=== PATIENT | female | born 1965 | race Caucasian/White ===

== ENCOUNTER → 2023-08-05 11:48 | Outpatient (REF) | payer BC, SELFPAY ==
[2023-08-05 12:52] LABS: ALT (SGPT) 62 U/L (0-35); AST (SGOT) 38 U/L (14-36); Alkaline Phosphatase 100 U/L (38-126); Blood Urea Nitrogen 12 mg/dl (7-17); Calcium 9.1 mg/dl (8.4-10.2); Carbon Dioxide 31 mmol/L (22-30); Chloride 116 mmol/L (98-107); Glucose 100 mg/dl (70-99); Sodium 136 mmol/L (135-145); Total Bilirubin 0.7 mg/dl (0.2-1.3); Total Protein 6.5 g/dl (6.3-8.2); eGFR > 60.00
== END ==
LOC: REG 11:48
PROVIDERS: ATTENDING PHYSICIAN Registered Nurse; FAMILY PHYSICIAN Family Medicine
DX: U07.1 COVID-19 (principal)
CPT/HCPCS: 36415; 80053

== ENCOUNTER → 2023-08-12 13:51 | Outpatient (REF) | payer BC, SELFPAY | LOC: WDC 13:51 | PROVIDERS: ATTENDING PHYSICIAN Internal Medicine | DX: Z12.31 Encounter for screening mammogram for malignant neoplasm of breast (principal) | CPT/HCPCS: 77063; 77067 ==

== ENCOUNTER → 2023-08-22 08:52 | Outpatient (REF) | payer BC, SELFPAY ==
[2023-08-22 09:24] LABS: ALT (SGPT) 16 U/L (0-35); AST (SGOT) 21 U/L (14-36); Albumin 3.9 g/dl (3.5-5.0); Alkaline Phosphatase 91 U/L (38-126); Blood Urea Nitrogen 15 mg/dl (7-17); Carbon Dioxide 29 mmol/L (22-30); Chloride 119 mmol/L (98-107); Glucose 95 mg/dl (70-99); Sodium 138 mmol/L (135-145); Total Bilirubin 0.6 mg/dl (0.2-1.3); Total Protein 6.5 g/dl (6.3-8.2); eGFR > 60.00
== END ==
LOC: REG 08:52
PROVIDERS: ATTENDING PHYSICIAN Family Medicine
DX: R79.89 Other specified abnormal findings of blood chemistry (principal)
CPT/HCPCS: 36415; 80053

== ENCOUNTER → 2023-09-25 12:40 | Outpatient (REF) | payer BC, SELFPAY | LOC: CLAB 12:40 | PROVIDERS: ATTENDING PHYSICIAN Otolaryngology | DX: K13.0 Diseases of lips (principal) | CPT/HCPCS: 88305 ==

== ENCOUNTER → 2023-09-27 10:44 | Outpatient (REF) | payer BC, SELFPAY | LOC: CLAB 10:44 | PROVIDERS: ATTENDING PHYSICIAN Otolaryngology | DX: R22.1 Localized swelling, mass and lump, neck (principal) | CPT/HCPCS: 87070; 87205 ==

== ENCOUNTER → 2024-01-13 11:55 | Outpatient (REF) | payer BC, SELFPAY | LOC: RAD 11:55 | PROVIDERS: ATTENDING PHYSICIAN Internal Medicine Rheumatology; FAMILY PHYSICIAN Family Medicine | DX: M17.11 Unilateral primary osteoarthritis, right knee (principal) | CPT/HCPCS: 73560; 73565 ==

== ENCOUNTER → 2024-03-09 10:01 | Outpatient (REF) | payer BC, SELFPAY ==
[2024-03-09 11:37] LABS: % Basophils 0.6 % (0-2); % Eosinophils 5.8 % (0-6); % Immature Granulocytes 0.3 % (0-0.5); % Lymphocytes 28.5 % (20.5-51.1); % Monocytes 10.2 % (1.7-9.3); % Neutrophils 54.6 % (42.2-75.2); Absolute Eosinophils 0.2 10^3/uL (0-0.7); Absolute Monocytes 0.4 10^3/uL (0.1-0.6); Hemoglobin 11.8 g/dL (12.0-16.0); Mean Corp Hgb Conc. 31.1 g/dL (33.0-37.0); Mean Corpuscular Hgb 25.9 pg (27.0-31.0); Mean Corpuscular Volume 83.3 fL (81.0-99.0); Nucleated Red Blood Cells % 0 %; Platelet Count 281 10^3/uL (130-400); Red Blood Cell Count 4.56 10^6/uL (4.20-5.40); Red Cell Dist. Width 17.1 % (11.5-14.5); White Blood Cell Count 3.6 10^3/uL (4.8-10.8)
[2024-03-09 12:04] LABS: ALT (SGPT) 20 U/L (0-35); AST (SGOT) 27 U/L (14-36); Albumin 4.1 g/dl (3.5-5.0); Alkaline Phosphatase 110 U/L (38-126); Blood Urea Nitrogen 17 mg/dl (7-17); Calcium 9.6 mg/dl (8.4-10.2); Carbon Dioxide 23 mmol/L (22-30); Chloride 111 mmol/L (98-107); Glucose 89 mg/dl (70-99); HDL Cholesterol 80 mg/dl; LDL Cholesterol, Calculated 103 mg/dl; Potassium 4.4 mmol/L (3.5-5.1); Sodium 141 mmol/L (135-145); Total Bilirubin 0.6 mg/dl (0.2-1.3); Total Cholesterol 198 mg/dl (50-199); Total Protein 6.8 g/dl (6.3-8.2); Triglyceride 78 mg/dl (10-149); Very Low Density Lipoprotein 15 mg/dl (0-30); eGFR > 60.00
[2024-03-09 12:05] LABS: Glycohemoglobin (HgbA1c) 5.7 % (4.0-5.6)
[2024-03-09 12:22] LABS: Vitamin D, 25-OH*** 42.5 ng/mL (30-80)
[2024-03-09 12:36] LABS: TSH Reflex To Free T4 1.27 uIU/ml (0.47-4.68)
[2024-03-09 12:56] LABS: Vitamin B12 310 pg/ml (239-931)
== END ==
LOC: REG 10:01
PROVIDERS: ATTENDING PHYSICIAN Internal Medicine Rheumatology; FAMILY PHYSICIAN Family Medicine; OTHER PHYSICIAN Internal Medicine Endocrinology, Diabetes & Metabolism; OTHER PHYSICIAN Psychiatry & Neurology Clinical Neurophysiology
DX: M35.9 Systemic involvement of connective tissue, unspecified (principal); M79.7 Fibromyalgia; Z51.81 Encounter for therapeutic drug level monitoring; R73.01 Impaired fasting glucose; E03.9 Hypothyroidism, unspecified; E55.9 Vitamin D deficiency, unspecified; E53.8 Deficiency of other specified B group vitamins; R53.83 Other fatigue; Z13.6 Encounter for screening for cardiovascular disorders; R73.03 Prediabetes; E06.3 Autoimmune thyroiditis; E21.0 Primary hyperparathyroidism; R25.2 Cramp and spasm
CPT/HCPCS: 36415; 80053; 80061; 82306; 82607; 83036; 84443; 85025; 86140

== ENCOUNTER → 2024-04-15 06:29 | Day surgery (SDC) | payer BC, SELFPAY | LOC: GI 06:29 | PROVIDERS: ATTENDING PHYSICIAN Internal Medicine Gastroenterology | DX: Z12.11 Encounter for screening for malignant neoplasm of colon (principal); K58.9 Irritable bowel syndrome, unspecified; K57.30 Diverticulosis of large intestine without perforation or abscess without bleeding; K64.8 Other hemorrhoids; K29.80 Duodenitis without bleeding; K44.9 Diaphragmatic hernia without obstruction or gangrene; K31.7 Polyp of stomach and duodenum; K31.89 Other diseases of stomach and duodenum; D64.9 Anemia, unspecified; R12 Heartburn; Z83.719 Family history of colon polyps, unspecified | CPT/HCPCS: 45380; 43239; 88305; 88341; 88342 ==

== ENCOUNTER → 2024-05-01 07:07 | Outpatient (REF) | payer BC, SELFPAY | LOC: RAD 07:07 | PROVIDERS: ATTENDING PHYSICIAN Internal Medicine Endocrinology, Diabetes & Metabolism; FAMILY PHYSICIAN Family Medicine | DX: E04.1 Nontoxic single thyroid nodule (principal) | CPT/HCPCS: 76536 ==

== ENCOUNTER → 2024-07-11 16:48 | Outpatient (REF) | payer BC, SELFPAY | LOC: RAD 16:48 | PROVIDERS: ATTENDING PHYSICIAN Nurse Practitioner Adult Health | DX: J20.9 Acute bronchitis, unspecified (principal); J01.90 Acute sinusitis, unspecified; I10 Essential (primary) hypertension; J45.20 Mild intermittent asthma, uncomplicated | CPT/HCPCS: 71046 ==

== ENCOUNTER → 2024-07-26 08:35 | Outpatient (REF) | payer BC, SELFPAY ==
[2024-07-26 12:03] LABS: % Basophils 0.5 % (0-2); % Eosinophils 0.5 % (0-6); % Immature Granulocytes 0.2 % (0-0.5); % Lymphocytes 36.4 % (20.5-51.1); % Monocytes 10.1 % (1.7-9.3); % Neutrophils 52.3 % (42.2-75.2); Absolute Lymphocytes 2.1 10^3/uL (1.2-3.4); Absolute Monocytes 0.6 10^3/uL (0.1-0.6); Absolute Neutrophils 2.9 10^3/uL (1.4-6.5); Hematocrit 38.8 % (37.0-47.0); Hemoglobin 11.5 g/dL (12.0-16.0); Mean Corp Hgb Conc. 29.6 g/dL (33.0-37.0); Mean Corpuscular Volume 87.6 fL (81.0-99.0); Mean Platelet Volume 11.4 fL (7.4-10.4); Nucleated Red Blood Cells % 0 %; Platelet Count 327 10^3/uL (130-400); Red Blood Cell Count 4.43 10^6/uL (4.20-5.40); Red Cell Dist. Width 16.8 % (11.5-14.5); White Blood Cell Count 5.6 10^3/uL (4.8-10.8)
[2024-07-26 12:13] LABS: ALT (SGPT) 16 U/L (0-35); AST (SGOT) 18 U/L (14-36); Albumin 3.9 g/dl (3.5-5.0); Alkaline Phosphatase 75 U/L (38-126); Blood Urea Nitrogen 18 mg/dl (7-17); Calcium 9.5 mg/dl (8.4-10.2); Carbon Dioxide 30 mmol/L (22-30); Chloride 113 mmol/L (98-107); Glucose 86 mg/dl (70-99); HDL Cholesterol 92 mg/dl; Iron 51 ug/dl (37-170); LDL Cholesterol, Calculated 99 mg/dl; Potassium 3.9 mmol/L (3.5-5.1); Sodium 138 mmol/L (135-145); Total Bilirubin 0.6 mg/dl (0.2-1.3); Total Cholesterol 208 mg/dl (50-199); Total Protein 6.6 g/dl (6.3-8.2); Triglyceride 88 mg/dl (10-149); Very Low Density Lipoprotein 17 mg/dl (0-30); eGFR > 60.00
[2024-07-26 12:22] LABS: Percent Saturation 13 % (20-50); Total Iron Binding Capacity 385 ug/dl (265-497)
[2024-07-26 12:44] LABS: TSH Reflex To Free T4 6.58 uIU/ml (0.47-4.68)
[2024-07-26 12:48] LABS: Ferritin 6.2 ng/ml (11.1-264.0)
[2024-07-26 12:55] LABS: Glycohemoglobin (HgbA1c) 5.9 % (4.0-5.6)
[2024-07-26 13:10] LABS: Free T4 1.38 ng/dl (0.78-2.19)
== END ==
LOC: HWRAD 08:35
PROVIDERS: ATTENDING PHYSICIAN Otolaryngology; FAMILY PHYSICIAN Family Medicine; REFERRING PHYSICIAN Internal Medicine Rheumatology
DX: J32.8 Other chronic sinusitis (principal); D64.9 Anemia, unspecified; M35.9 Systemic involvement of connective tissue, unspecified; Z51.81 Encounter for therapeutic drug level monitoring; R73.01 Impaired fasting glucose; E03.9 Hypothyroidism, unspecified; R53.83 Other fatigue; Z13.6 Encounter for screening for cardiovascular disorders
CPT/HCPCS: 36415; 70486; 80053; 80061; 82728; 83036; 83540; 83550; 84439; 84443; 85025

== ENCOUNTER 2024-08-15 09:09 | Outpatient (RCR) | payer BC, SELFPAY ==
[2024-08-12] VITALS (8 sets, daily range): BP systolic 104–128; BP diastolic 59–77
[2024-08-12] MEDS: GAMMAGARD 200 IV (10:33)
[2024-08-12] MEDS: NSS 250 IV (10:33)
[2024-08-12] MEDS: BENADRYL 25 MG PO (10:33)
[2024-08-12] MEDS: TYLENOL 650 MG PO (10:33)
[2024-08-12] MEDS: GAMMAGARD 300 IV (12:21)
[2024-08-13] VITALS (8 sets, daily range): BP systolic 104–132; BP diastolic 58–78
[2024-08-13] MEDS: NSS 250 IV (11:17)
[2024-08-13] MEDS: GAMMAGARD 300 IV (11:18)
[2024-08-13] MEDS: BENADRYL 25 MG PO (11:18)
[2024-08-13] MEDS: TYLENOL 650 MG PO (11:18)
[2024-08-13] MEDS: GAMMAGARD 200 IV (13:23)
[2024-08-14] VITALS (8 sets, daily range): BP systolic 120–146; BP diastolic 64–87
[2024-08-14] MEDS: NSS 250 IV (09:40)
[2024-08-14] MEDS: BENADRYL 25 MG PO (09:41)
[2024-08-14] MEDS: TYLENOL 650 MG PO (09:41)
[2024-08-14] MEDS: GAMMAGARD 300 IV (09:41)
[2024-08-14] MEDS: GAMMAGARD 200 IV (11:45)
[2024-08-15] VITALS (8 sets, daily range): BP systolic 129–149; BP diastolic 79–89
[2024-08-15] MEDS: NSS 250 IV (09:26)
[2024-08-15] MEDS: GAMMAGARD 300 IV (09:26)
[2024-08-15] MEDS: TYLENOL 650 MG PO (09:27)
[2024-08-15] MEDS: BENADRYL 25 MG PO (09:27)
[2024-08-15] MEDS: GAMMAGARD 200 IV (11:31)
== END 2024-08-30 23:59 | disposition home or self-care (01) ==
LOC: OID 09:09
PROVIDERS: ATTENDING PHYSICIAN Psychiatry & Neurology Clinical Neurophysiology; FAMILY PHYSICIAN Family Medicine
DX: G70.01 Myasthenia gravis with (acute) exacerbation (principal)
CPT/HCPCS: 96365; 96366; J1569

== ENCOUNTER → 2024-08-29 16:35 | Outpatient (REF) | payer BC, SELFPAY | LOC: MRI 3T 16:35 | PROVIDERS: ATTENDING PHYSICIAN Family Medicine | DX: Z87.898 Personal history of other specified conditions (principal) | CPT/HCPCS: 77049; A9585 ==

== ENCOUNTER → 2024-09-09 08:14 | Outpatient (REF) | payer BC, SELFPAY | LOC: RAD 08:14 | PROVIDERS: ATTENDING PHYSICIAN Family Medicine | DX: E04.1 Nontoxic single thyroid nodule (principal); Z87.898 Personal history of other specified conditions | CPT/HCPCS: 76536 ==

== ENCOUNTER → 2024-09-12 08:59 | Outpatient (REF) | payer BC, SELFPAY | LOC: RAD 08:59 | PROVIDERS: ATTENDING PHYSICIAN Obstetrics & Gynecology Gynecology | DX: N95.0 Postmenopausal bleeding (principal) | CPT/HCPCS: 76830; 76856 ==

== ENCOUNTER → 2025-02-08 11:06 | Outpatient (REF) | payer BC, SELFPAY ==
[2025-02-08 12:11] LABS: Hematocrit 41.3 % (37.0-47.0); Hemoglobin 12.8 g/dL (12.0-16.0); Mean Corp Hgb Conc. 31.0 g/dL (33.0-37.0); Mean Corpuscular Volume 90.2 fL (81.0-99.0); Nucleated Red Blood Cells % 0 %; Platelet Count 258 10^3/uL (130-400); Red Cell Dist. Width 15.6 % (11.5-14.5)
[2025-02-08 12:31] LABS: Glycohemoglobin (HgbA1c) 5.4 % (4.0-5.6)
[2025-02-08 12:39] LABS: ALT (SGPT) 18 U/L (0-35); AST (SGOT) 24 U/L (14-36); Albumin 4.3 g/dl (3.5-5.0); Alkaline Phosphatase 95 U/L (38-126); Blood Urea Nitrogen 15 mg/dl (7-17); Calcium 9.6 mg/dl (8.4-10.2); Carbon Dioxide 30 mmol/L (22-30); Chloride 117 mmol/L (98-107); Glucose 93 mg/dl (70-99); HDL Cholesterol 86 mg/dl; LDL Cholesterol, Calculated 131 mg/dl; Potassium 4.9 mmol/L (3.5-5.1); Sodium 141 mmol/L (135-145); Total Protein 6.9 g/dl (6.3-8.2); Very Low Density Lipoprotein 16 mg/dl (0-30); eGFR > 60.00
== END ==
LOC: REG 11:06
PROVIDERS: ATTENDING PHYSICIAN Internal Medicine Rheumatology; FAMILY PHYSICIAN Family Medicine
DX: D64.9 Anemia, unspecified (principal); M35.9 Systemic involvement of connective tissue, unspecified; Z79.899 Other long term (current) drug therapy; R73.01 Impaired fasting glucose; E03.9 Hypothyroidism, unspecified; Z13.6 Encounter for screening for cardiovascular disorders; M17.10 Unilateral primary osteoarthritis, unspecified knee
CPT/HCPCS: 36415; 73560; 73565; 80053; 80061; 83036; 84443; 85025

== ENCOUNTER → 2025-03-27 12:12 | Outpatient (REF) | payer BC, SELFPAY ==
[2025-03-27 12:57] LABS: Hematocrit 43.0 % (37.0-47.0); Hemoglobin 13.3 g/dL (12.0-16.0); Mean Corp Hgb Conc. 30.9 g/dL (33.0-37.0); Mean Corpuscular Volume 90.3 fL (81.0-99.0); Nucleated Red Blood Cells % 0 %; Platelet Count 256 10^3/uL (130-400); Red Cell Dist. Width 14.6 % (11.5-14.5)
[2025-03-27 13:37] LABS: ALT (SGPT) 24 U/L (0-35); AST (SGOT) 24 U/L (14-36); Albumin 4.2 g/dl (3.5-5.0); Alkaline Phosphatase 82 U/L (38-126); Blood Urea Nitrogen 14 mg/dl (7-17); Calcium 9.7 mg/dl (8.4-10.2); Carbon Dioxide 31 mmol/L (22-30); Chloride 115 mmol/L (98-107); Glucose 88 mg/dl (70-99); Potassium 4.4 mmol/L (3.5-5.1); Sodium 140 mmol/L (135-145); Total Protein 7.0 g/dl (6.3-8.2); eGFR > 60.00
[2025-03-27 15:59] LABS: Vitamin D, 25-OH*** 40.5 ng/mL (30-80)
[2025-03-27 16:12] LABS: TSH 0.83 uIU/ml (0.47-4.68)
[2025-03-27 16:47] LABS: Folate 13.7 ng/ml (2.76-20); Vitamin B12 280 pg/ml (239-931)
[2025-03-28 06:41] LABS: Glycohemoglobin (HgbA1c) 5.6 % (4.0-5.6)
== END ==
LOC: REG 12:12
PROVIDERS: ATTENDING PHYSICIAN Psychiatry & Neurology Clinical Neurophysiology; FAMILY PHYSICIAN Family Medicine; OTHER PHYSICIAN Internal Medicine Endocrinology, Diabetes & Metabolism; OTHER PHYSICIAN Obstetrics & Gynecology Gynecology
DX: G70.01 Myasthenia gravis with (acute) exacerbation (principal); R73.03 Prediabetes; E06.3 Autoimmune thyroiditis; E21.0 Primary hyperparathyroidism; L65.9 Nonscarring hair loss, unspecified
CPT/HCPCS: 36415; 80053; 82306; 82607; 82746; 83036; 84270; 84402; 84403; 84439; 84443; 85025

== ENCOUNTER 2025-04-17 08:38 | Outpatient (RCR) | payer BC, SELFPAY ==
[2025-04-14] VITALS (8 sets, daily range): BP systolic 105–133; BP diastolic 51–68
[2025-04-14] MEDS: NSS 250 IV (09:13)
[2025-04-14] MEDS: BENADRYL 25 MG PO (09:14)
[2025-04-14] MEDS: GAMMAGARD 200 IV (09:14)
[2025-04-14] MEDS: TYLENOL 650 MG PO (09:14)
[2025-04-14] MEDS: GAMMAGARD 300 IV (10:59)
[2025-04-15] VITALS (7 sets, daily range): BP systolic 108–134; BP diastolic 57–66
[2025-04-15] MEDS: NSS 250 IV (09:03)
[2025-04-15] MEDS: TYLENOL 650 MG PO (09:03)
[2025-04-15] MEDS: BENADRYL 25 MG PO (09:03)
[2025-04-15] MEDS: GAMMAGARD 200 IV (09:04)
[2025-04-15] MEDS: GAMMAGARD 300 IV (10:48)
[2025-04-16] VITALS (7 sets, daily range): BP systolic 110–139; BP diastolic 57–68
[2025-04-16] MEDS: NSS 250 IV (08:40)
[2025-04-16] MEDS: BENADRYL 25 MG PO (08:52)
[2025-04-16] MEDS: GAMMAGARD 200 IV (08:53)
[2025-04-16] MEDS: TYLENOL 650 MG PO (08:53)
[2025-04-16] MEDS: GAMMAGARD 300 IV (10:40)
[2025-04-17] VITALS (7 sets, daily range): BP systolic 116–138; BP diastolic 64–73
[2025-04-17] MEDS: NSS 250 IV (08:57)
[2025-04-17] MEDS: GAMMAGARD 200 IV (08:58)
[2025-04-17] MEDS: BENADRYL 25 MG PO (08:58)
[2025-04-17] MEDS: TYLENOL 650 MG PO (08:58)
[2025-04-17] MEDS: GAMMAGARD 300 IV (10:42)
== END 2025-04-18 09:05 | disposition home or self-care (01) ==
LOC: OID 08:38
PROVIDERS: ATTENDING PHYSICIAN Psychiatry & Neurology Clinical Neurophysiology; FAMILY PHYSICIAN Family Medicine
DX: G70.01 Myasthenia gravis with (acute) exacerbation (principal)
CPT/HCPCS: 96365; 96366; J1569

== ENCOUNTER 2025-06-16 06:10 | Day surgery (SDC) | payer BC, SELFPAY ==
[2025-06-16] VITALS (7 sets, daily range): BP systolic 107–134; BP diastolic 54–78; BMI 36.2
[2025-06-16] MEDS: TYLENOL 1000 MG PO (08:45)
[2025-06-16] MEDS: NORMOSOL-R/PLASMALYTE-A 1000 IV (08:46)
--- NOTE | 2025-06-16 08:59 | PTCARENOTE ---
Patient very talkative regarding caring for her mother for the last 2 years. Support was provided.
[2025-06-16] MEDS: DILAUDID 0.5 MG IV (11:19)
== END 2025-06-16 13:08 | disposition home or self-care (01) ==
LOC: SDS 06:10
PROVIDERS: ATTENDING PHYSICIAN Otolaryngology
DX: J32.9 Chronic sinusitis, unspecified (principal); J34.2 Deviated nasal septum
CPT/HCPCS: 31276; 31254; 31267; 30520; 88304; 88311